=== PATIENT | female | born 2005 | race Caucasian/White ===

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

== ENCOUNTER 2024-07-02 14:53 | Outpatient (REF) | payer MEDICAID, SELFPAY | END 2024-07-02 14:54 | disposition home or self-care (01) | LOC: HO.US 14:53 | PROVIDERS: PCP Family Medicine; Visit Provider Family Medicine | DX: R39.9 Unspecified symptoms and signs involving the genitourinary system (principal) | CPT/HCPCS: 76775 ==

== ENCOUNTER 2025-09-04 08:47 | Outpatient (REF) | payer MEDICAID, SELFPAY ==
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
--- OUTSIDE RECORDS SUMMARY | 2025-09-04 08:50 | XMS_ITS | Encounter Summary ---
Author Organization [employer] Address [address] [place] [address] Care Team Providers Care Salesperson Household Appliances Name Role Phone Roseann Ferrer MD Primary Care Provider [phone] Reason for Visit * Reason Onset Date Comments chart prep 09/02/2025 Encounter Details Date Type Department Care Team ([facility] st Contact Info) Description 09/02/2025 Telephone [facility] [address], [place] [phone] Roseann Ferrer MD [address] [place], [place] [phone] chart prep Social History Tobacco Use Types Packs/Day Years [...] PM EDT documented as of this encounter Miscellaneous Notes * Telephone Encounter - Elisha Hoffman MA - 09/02/2025 12:34 PM EST Chart Prep Labs: done Images: not applicable Screenings: Not Applicable Vaccines due: Covid Due, Tdap Due, Flu Due, and MCV4 Due Referrals: Completed Overdue care gaps: Sbirt, SDOH, PHQ9, Disability , and Oral Health documented in this encounter Plan of Treatment Not on file documented as of this encounter Visit Diagnoses Not on filedocumented in this encounter Additional Health Concerns Assessment Noted Time PHQ-9 Depression Total Score: 8 05/28/20 24 1:11 PM EDT documented as of this encounter Care Teams Salesperson Household Appliances Relationship Specialty Start Date End Date Roseann Ferrer MD [address] [place] [id number] PCP - General Family Medicine 05/11/13 documented as of this encounter
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
--- OUTSIDE RECORDS SUMMARY | 2025-09-04 08:50 | XMS_ITS | Encounter Summary ---
Author Organization [employer] Address [address] [place] [address] Care Team Providers Care Restorative Aide Name Role Phone Roseann Ferrer MD Primary Care Provider [phone] Encounter Details Date Type Department Care Team (Latest Contact Info) Description 09/03/2025 Travel Social History Tobacco Use Types Packs/Day Years [...] PM EDT documented as of this encounter Plan of Treatment Not on file documented as of this encounter Visit Diagnoses Not on filedocumented in this encounter Additional Health Concerns Assessment Noted Time PHQ-9 Depression Total Score: 11 025 3:30 PM EST documented as of this encounter Care Teams Restorative Aide Relationship Specialty Start Date End Date Roseann Ferrer MD [address] [place] [address] PCP - General Family Medicine 05/11/13 documented as of this encounter
[2025-09-04 11:06] LABS: MANUAL DIFF FLAG NO
[2025-09-04 11:14] LABS: Hematocrit 47.5 % (37.0-47.0); Hemoglobin 16.5 g/dl (12.0-16.0); Imm Gran Abs Auto 0.04 X10*3/uL (0.00-0.03); Imm Gran Pct Auto 0.4 % (0.0-0.4); Lymphocytes Absolute Auto 1.6 X10*3/uL (1.2-4.9); Mean Corpuscular HGB Conc 34.7 g/dl (31.0-35.0); Mean Corpuscular Hemoglobin 30.6 pg (27.0-33.0); Mean Corpuscular Volume 88.0 fL (80.0-98.0); NRBC Abs Auto 0.000 X10*3/uL (0.0-0.012); NRBC Pct Auto 0.0 /100WBC (0.0-0.2); Platelet Count 261 X10*3/uL (160-400); Red Blood Count 5.40 X10*6/uL (4.20-5.50); White Blood Count 10.1 X10*3/uL (4.8-10.8)
[2025-09-04 11:56] LABS: Alanine Aminotransferase 19 U/L (0-31); Albumin Level 5.1 g/dL (3.5-5.0); Alkaline Phosphatase 93 U/L (39-117); Anion Gap 13 (12-20); Aspartate Amino Transferase 35 U/L (5-31); Blood Urea Nitrogen 6 mg/dL (9-16); Calcium 9.6 mg/dL (8.4-10.2); Carbon Dioxide 29 mmol/L (22-29); Chloride 102 mmol/L (96-108); Cholesterol 199 mg/dL (<200); Estimated Glomerular Filt Rate > 60; HDL Cholesterol 57 mg/dL (>40); Potassium 4.0 mmol/L (3.3-5.1); Sodium 140 mmol/L (135-145); Total Protein 8.3 g/dL (6.5-8.0); Triglycerides 76 mg/dL (<150)
[2025-09-04 12:00] LABS: HBsAGNum1 0.31 S/CO (0.00-0.99); HIV Num 1 0.08 S/CO (0.00-0.99); Hepatitis B Surface Antigen Negative (Negative); ~HepC Num1 0.15 S/CO (0.00-0.79); ~Hepatitis C Antibody Nonreactive (Nonreactive)
[2025-09-04 12:02] LABS: Syphilis Screen Nonreactive (Nonreactive)
[2025-09-04 13:06] LABS: Reflex LDLD? No
== END 2025-09-04 08:48 | disposition home or self-care (01) ==
LOC: HO.HHCL 08:47
PROVIDERS: PCP Family Medicine; Visit Provider Family Medicine
DX: Z11.3 Encounter for screening for infections with a predominantly sexual mode of transmission (principal); Z13.220 Encounter for screening for lipoid disorders; Z13.1 Encounter for screening for diabetes mellitus; Z11.4 Encounter for screening for human immunodeficiency virus [HIV]; Z11.59 Encounter for screening for other viral diseases; Z01.84 Encounter for antibody response examination; M25.541 Pain in joints of right hand; M25.542 Pain in joints of left hand; M79.10 Myalgia, unspecified site; M25.511 Pain in right shoulder; M25.512 Pain in left shoulder; M25.531 Pain in right wrist; M25.532 Pain in left wrist; M79.641 Pain in right hand; G89.29 Other chronic pain
CPT/HCPCS: 36415; 80053; 80061; 83036; 84443; 85025; 85652; 86140; 86780; 86803; 87340; 87389